=== PATIENT | male | born 2000 | race Caucasian/White ===

== ENCOUNTER 2022-11-01 07:37 | Emergency (ER) | payer OTHER ==
[~2022-11-01] VITALS: Ht 172.7 cm; Wt 61.3 kg
[2022-11-01] MEDS ORDERED: SODIUM CHLORIDE 0.9% 1,000 ML IV ONE ×2 (08:15)
[2022-11-01] MEDS ORDERED: ONDANSETRON HCL 4 MG/2 ML VIAL IV ONE (08:15)
[2022-11-01 08:21] LABS: Hemoglobin 16.6 g/dL (13.5-17.5); Mean Corpuscular Hemoglobin 29.6 pg (28.0-32.0); Mean Corpuscular Hgb Conc. 33.9 g/dL (32.0-36.0); Mean Corpuscular Volume 87.4 fL (80.0-100.0); Red Cell Distribution Width 12.8 % (11.8-14.3); White Blood Cell 13.9 10^3/uL (4.4-10.8)
[2022-11-01 08:29] LABS: Albumin 4.4 g/dL (3.4-5.0); BUN/Creatinine Ratio 15.9; Calcium 9.6 mg/dL (8.5-10.1); Potassium 3.7 mmol/L (3.5-5.1)
[2022-11-01 08:31] LABS: Basophils % (manual) 0 (0.0-2.0); Blast Cells 0; Eosinophils % (manual) 0 (0-7); Metamyelocytes % 0; Myelocytes % 0; Promyelocytes % 0; Reactive Lymphocytes 0
[2022-11-01 08:32] LABS: Bilirubin, Total 1.1 mg/dL (0.2-1.0); Total Protein 7.6 g/dL (6.4-8.2)
[2022-11-01 09:25] LABS: Band Neutrophils % (manual) 6; Lymphocytes % (manual) 1 (10.0-50.0); Monocytes % (manual) 6 (0-12)
[2022-11-01] MEDS ORDERED: ONDA-144 PO (11:33)
[2022-11-01] MEDS ORDERED: CEPH-510 PO (11:33)
[2022-11-01] MEDS ORDERED: METR500T PO (11:33)
[2022-11-01 12:10] VITALS: BP 109/68
[2022-11-01 12:30] LABS: Urine Bacteria NONE SEEN /hpf (None Seen); Urine Blood Negative /uL (Negative); Urine Mucus FEW (None Seen); Urine Specific Gravity 1.031 (1.001-1.035); Urine WBC 1 /hpf (0 - 3)
== END 2022-11-01 14:13 | disposition home or self-care (01) ==
LOC: ER 07:37
DX: K52.9 Noninfective gastroenteritis and colitis, unspecified (principal); Z20.822 Contact with and (suspected) exposure to COVID-19
CPT/HCPCS: 36415; 74176; 80053; 81001; 85007; 85027; 87426; 87804

== ENCOUNTER 2025-06-08 19:42 | Emergency (ER) | payer BC, OTHER ==
[~2025-06-08] VITALS: Ht 172.7 cm; Wt 68.2 kg
[~2025-06-08 19:42] MED LIST: CEPH-510 PO; METR500T PO; ONDA-144 PO
[2025-06-08] MEDS: AMOXICILLIN/CLAVUL 875 MG TAB PO ONE (21:23)
[2025-06-08] MEDS: IBUPROFEN 800 MG TAB PO ONE (21:24)
[2025-06-08] MEDS: TETANUS-DIPTH-ACEL PERTUSSIS 0.5ML SYR Tdap IM ONE (21:28)
[2025-06-08 21:30] VITALS: BP 149/77; TEMP 98.9
[2025-06-08 21:32] VITALS: PULSE 70; RESP 12; O2SAT 96
[2025-06-08] MEDS ORDERED: AUG875T PO (22:09)
[2025-06-08] MEDS ORDERED: IBUP-1455 PO (22:09)
--- NOTE | 2025-06-08 22:09 | ED.PDOC ---
Lorena. trauma (HPI) HPI Comments This patient is a 25-year-old male who arrives the ED today for evaluation of a dog bite to the left wrist sustained a proximally 1 hour prior to arrival. [place] dogs bit him on the wrist. Patient had some minimal blood loss. Patient denies any fever nausea or vomiting. Tetanus is not up-to-date. Chief Complaint: Animal Bite Time Seen by MD: 21:00 Reviewed notes: Nurses Notes Allergies: Coded Allergies: NO KNOWN ALLERGIES (Unverified , 11/01/22) Home Meds Active Scripts Ondansetron (Zofran) 4 Mg Tab, 4 MG PO DAILY PRN for 5 Days, #5 MG Prov:RAZIA VASQUEZ MD 11/01/22 Metronidazole (Flagyl) 500 Mg Tab, 500 MG PO TID for 5 Days, #15 TAB Prov:RAZIA VASQUEZ MD 11/01/22 Cephalexin ( Keflex 500) 500 Mg Cap, 1 CAP PO TID for 5 Days, #15 CAP Prov:RAZIA VASQUEZ MD 11/01/22 Information Source: Patient, Friend Mode of Arrival: Ambulatory Severity: Moderate Timing: Minutes Duration: Since onset Prehospital treatment: None Location: (L) Wrist Location of laceration: Other (Puncture wound to left wrist) Mechanism: Other (Dog bite) Past Medical History PAST MEDICAL HISTORY: Denies Surgical History: Denies all surgeries Family History Family History: Reviewed,noncontributory to illness Social History Smoker: Non-Smoker Alcohol: Occasionally Drugs: Denies Drug Use Lives In: Home Constitutional: denies: chills, diaphoresis, fatigue, fever, malaise, sweats, weakness, others EENTM: denies: blurred vision, double vision, ear bleeding, ear discharge, ear drainage, ear pain, ear ringing, eye pain, eye redness, hearing loss, mouth pain, mouth swelling, nasal discharge, nose bleeding, nose congestion, nose pain, photophobia, tearing, throat pain, throat swelling, voice changes, others Respiratory: denies: cough, hemoptysis, orthopnea, SOB at rest, shortness of breath, SOB with excertion, stridor, wheezing, others Cardiovascular: denies: chest pain, dizzy spells, diaphoresis, Dyspnea on exertion, edema, irregular heart beat, left arm pain, lightheadedness, palpitations, PND, syncope, others Gastrointestinal: denies: abdomen distended, abdominal pain, blood streaked bowels, constipated, diarrhea, dysphagia, difficulty swallowing, hematemesis, melena, nausea, poor appetite, poor fluid intake, rectal bleeding, rectal pain, vomiting, others Genitourinary: denies: burning, dysuria, flank pain, frequency, hematuria, incontinence, penile discharge, penile sore, pain, testicle pain, testicle swelling, urgency, others Neurological: denies: dizziness, fainting, headache, left sided numbness, left sided weakness, numbness, paresthesia, pre-existing deficit, right sided numbness, right sided weakness, seizure, speech problems, tingling, tremors, weakness, others Musculoskeletal: denies: back pain, gout, joint pain, joint swelling, muscle pain, muscle stiffness, neck pain, others Integumetry: reports: wounds (Dog bite to left wrist); denies: bruises, change in color, change in hair/nails, dryness, laceration, lesions, lumps, rash, others Allergic/Immunocompromised: denies: Difficulty Healing, Frequent Infections, Hives, Itching, others Hematologic/Lymphatic: denies: anemia, blood clots, easy bleeding, easy bruising, swollen glands, others Endocrine: denies: excessive hunger, excessive sweating, excessive thirst, excessive urination, flushing, intolerance to cold, intolerance to heat, unexplained weight gain, unexplained weight loss, others Psychiatric: denies: anxiety, bipolar disorder, depression, hopeless, panic disorder, schizophrenia, sleepless, suicidal, others Physical Exam General Appearance: Mild Distress (Moderate distress due to dog bite concerns.), Normal HEENT: Normal ENT Inspection, Pharynx Normal, TMs Normal Neck: Full Range of Motion, Non-Tender, Normal, Normal Inspection Respiratory: Chest Non-Tender, Lungs Clear, No Accessory Muscle Use, No Respiratory Distress, Normal Breath Sounds Cardiovascular: No Edema, No JVD, No Murmur, No Gallop, Normal Peripheral Pulses, Regular Rate/Rhythm Breast Exam: Deferred Gastrointestinal: No Organomegaly, Non Tender, No Pulsatile Mass, Normal Bowel Sounds, Soft Genitalia: Deferred Pelvic: Deferred Rectal: Deferred Extremities: Other (Patient displays two puncture wounds to the left wrist due to the dog bite. Mild edema noted and tenderness to palpation throughout. No active bleed.) Neurologic: Alert, No Motor Deficits, Normal Affect, Normal Mood, No Sensory Deficits Cerebellar Function: Normal Reflexes: Normal Skin: Dry, Normal Color, Warm Lymphatic: No Adenopathy Was a procedure done? Was a procedure done?: No Differential Diagnosis Multiple Trauma: Other (Dog bite to wrist, puncture wound) X-Ray, Labs, Meds, VS Vital Signs Date Time Temp Pulse Resp B/P (MAP) Pulse Ox O2 Delivery O2 Flow Rate FiO2 06/08/25 21:32 70 12 96 Room Air* 0 21 06/08/25 21:30 98.9 70 12 149/77 (101) 96 98.9 06/08/25 19:43 98.1 89 16 135/83 98 98.1 Current Medications Medications (Trade) Dose Ordered Sig/Estela Route Start Time Stop Time Status Last Admin Diphtheria/ Tetanus/Acell Pertussis (Boostrix T-Dap) 0.5 ml ONCE ONCE IM 06/08/25 21:15 06/08/25 21:16 DC 06/08/25 21:28 Ibuprofen (Motrin Tablet) 800 mg ONCE ONCE PO 06/08/25 21:15 06/08/25 21:16 DC 06/08/25 21:24 Amoxicillin/ Clavulanate Potassium (Augmentin Tablet) 875 mg ONCE ONCE PO 06/08/25 21:15 06/08/25 21:16 DC 06/08/25 21:23 X-Ray, Labs, Meds, VS Comment Patient got his Tdap update and 1st dose of Augmentin prior to discharge. Advised patient utilize antibiotics as directed until completion as well as keeping the wound clean and dressed. Pain medication as needed. Time of 1ST Reevaluation: 22:07 Reevaluation 1ST: Improved Consultation: PCP Patient Education/Counseling: Diagnosis, Treatment Family Education/Counseling: Diagnosis, Treatment Departure 1 Departure Time of Disposition: 22:07 Impression: Primary Impression: Dog bite Disposition: 01 HOME / SELF CARE / HOMELESS Condition: Stable Additional Instructions: Advise utilizing antibiotics as directed until completion as well as pain medication as needed. Patient should keep the wound clean and do daily dressing changes. e-Prescriptions Ibuprofen Micronized (Ibuprofen) 800 Mg Tab 800 MG PO Q8HP PRN, #20 TAB Prov: KAITLYNN GIL PAC 06/08/25 Amoxicillin & Pot Clavulanate (AUGMENTIN TABLET) 875 Mg Tb 875 MG PO BID for 7 Days, #14 TAB Prov: KAITLYNN GIL PAC 06/08/25 Discharged With: Self, Friend Critical Care Note Critical Care Time?: No Stability Stability form required: No Heart Score Heart Score: Heart Score Response (Comments) Value History N/A 0 EKG N/A 0 Age N/A 0 Risk Factors N/A 0 Troponin N/A 0 Total 0 KAITLYNN GIL PAC Jun 08, 2025 22:09
== END 2025-06-08 22:55 | disposition home or self-care (01) ==
LOC: ER 19:42
DX: S61.552A Open bite of left wrist, initial encounter (principal); W54.0XXA Bitten by dog, initial encounter; Y93.89 Activity, other specified; Y92.89 Other specified places as the place of occurrence of the external cause; Y99.8 Other external cause status
CPT/HCPCS: 90471; 90715